=== PATIENT | male | born 1955 | race American Indian/Alaskan Native ===

== ENCOUNTER 2017-11-09 08:08 | Emergency (ER) | payer OTHER ==
[2017-11-09] MEDS ORDERED: TORADOL IM ONE (10:20)
[2017-11-09 10:33] VITALS: BP 176/91
--- NOTE | 2017-11-09 10:41 | XRay Report ---
LEFT SHOULDER: History: Left shoulder pain. Routine views demonstrate normal bony and soft tissue structures with normal joint alignment of the shoulder. Mild osteoarthritic changes are identified at the left acromioclavicular joint. No fracture, dislocation or ligamentous injury is identified. IMPRESSION: Mild acromioclavicular osteoarthritis.
--- NOTE | 2017-11-09 10:54 | Emergency Department Report ---
ED Upper Extremity Inj HPI - General Chief Complaint: Shoulder Injury Stated Complaint: LEFT ARM PAIN Time Seen by Provider: 11/09/17 10:20 Source: patient Mode of arrival: Ambulatory Limitations: No Limitations - History of Present Illness Initial Comments: 62-year-old right-hand dominant male history of hypertension, gout and diverticulitis presents to the hospital complains of left shoulder and left hand pain. Patient states initially started with left hand pain while week ago and now he is having anterior left shoulder pain as well. Pain is rated 8/10 and intensity, aching, intermittent, worse with palpation and movement in certain directions. Patient denies any recent injury, trauma, or heavy lifting. No fevers or swelling reported. Patient presents with elevated blood pressure and states he had history hypertension the past but improved after weight loss. Patient has elected to follow-up in quite some time for further evaluation of his blood pressure. Denies headache, chest pain, shortness of breath, or blurred vision. - Related Data Previous Rx's Medication Instructions Recorded Last Taken Type Ibuprofen [Motrin] 800 mg PO Q8HR PRN #30 tablet 11/09/17 Unknown Rx amLODIPine [Norvasc] 5 mg PO DAILY #30 tab 11/09/17 Unknown Rx traMADol [Ultram 50 MG tab] 50 mg PO Q6HR PRN #20 tablet 11/09/17 Unknown Rx Allergies Allergy/AdvReac Type Severity Reaction Status Date / Time No Known Allergies Allergy Unverified 11/09/17 08:12 ED Review of Systems ROS: Stated complaint: LEFT ARM PAIN Other details as noted in HPI Comment: All other systems reviewed and negative ED Past Medical Hx - Past Medical History Additional medical history: diverticulitis - Surgical History Past Surgical History?: No - Social History Smoking Status: Current Every Day Smoker Substance Use Type: Marijuana - Medications Home Medications: Home Medications Medication Instructions Recorded Confirmed Last Taken Type Ibuprofen [Motrin] 800 mg PO Q8HR PRN #30 tablet 11/09/17 Unknown Rx amLODIPine [Norvasc] 5 mg PO DAILY #30 tab 11/09/17 Unknown Rx traMADol [Ultram 50 MG tab] 50 mg PO Q6HR PRN #20 tablet 11/09/17 Unknown Rx ED Physical Exam - General Limitations: No Limitations - Other Other exam information: General: No limitations, patient is alert in no acute distress Head exam: Atraumatic, normocephalic Eyes exam: Normal appearance, pupils equal reactive to light, extraocular movements intact ENT: Moist mucous membrane, normal oropharynx Neck exam: Normal inspection, full range of motion, no meningismus nontender Respiratory exam: Clear to auscultation bilateral, no wheezes, rales, crackles Cardiovascular: Normal rate and rhythm, normal heart sounds Abdomen: Soft, nondistended, and nontender, with normal bowel sounds, no rebound, or guarding Extremity: Full range of motion normal inspection no deformity. Tenderness to the anterior left shoulder joint. Full range of motion with increased pain with external rotation and adduction. No warmth, swelling, or erythema. Back: Normal Inspection, full range of motion, no tenderness Neurologic: Alert, oriented x3, cranial nerves intact, no motor or sensory deficit Psychiatric: normal affect, normal mood Skin: Warm, dry, intact ED Course Vital Signs 11/09/17 11/09/17 08:12 10:32 Temperature 97.9 F Pulse Rate 58 L 58 L Respiratory 16 18 Rate Blood Pressure 182/90 Blood Pressure 176/91 [Right] O2 Sat by Pulse 100 99 Oximetry - Reevaluation(s) Reevaluation #1: 11/09/17 10:52 Patient received Toradol in the ED 11/09/17 11:03 Patient apparently refused Toradol ED Medical Decision Making - Radiology Data Radiology results: report reviewed LEFT SHOULDER: History: Left shoulder pain. Routine views demonstrate normal bony and soft tissue structures with normal joint alignment of the shoulder. Mild osteoarthritic changes are identified at the left acromioclavicular joint. No fracture, dislocation or ligamentous injury is identified. IMPRESSION: Mild acromioclavicular osteoarthritis. - Medical Decision Making X-ray suggestive of acromioclavicular arthritis. No clinical signs of infection. No side effects. Patient was treated symptomatically for pain and encouraged follow-up with PMD and orthopedic doctor. Blood pressure noted to be elevated. Patient be started on Norvasc 5 mg instructed to follow with PMD for further management. - Differential Diagnosis arthritis, bursitis, ligamentous injury Critical Care Time: No Critical care attestation.: If time is entered above; I have spent that time in minutes in the direct care of this critically ill patient, excluding procedure time. ED Disposition Clinical Impression: Arthritis of left shoulder region, HTN (hypertension) Disposition: DC- TO HOME OR SELFCARE Is pt being admited?: No Does the pt Need Aspirin: No Condition: Stable Instructions: Hypertension (ED), Osteoarthritis (ED), How to Take a Blood Pressure (ED) Additional Instructions: Take the medication as prescribed and follow with the primary care doctor orthopedic doctor. Continue to monitor your blood pressure. Return if symptoms worsens indicated by your discharge instructions. Prescriptions: amLODIPine [Norvasc] 5 mg PO DAILY #30 tab Ibuprofen [Motrin] 800 mg PO Q8HR PRN #30 tablet PRN Reason: Pain, Moderate (4-6) traMADol [Ultram 50 MG tab] 50 mg PO Q6HR PRN #20 tablet PRN Reason: Pain Referrals: [facility] [Provider Group] - 3-5 Days (Primary care clinic) CHRYSTAL GANDHI MD [Staff Physician] - 3-5 Days (Orthopedic doctor) NICA MUELLER MD [Staff Physician] - 3-5 Days (Primary care doctor) Time of Disposition: 11:03
== END 2017-11-09 11:25 | disposition home or self-care (01) ==
LOC: ED 08:08
DX: M19.012 Primary osteoarthritis, left shoulder (principal); I10 Essential (primary) hypertension; F17.200 Nicotine dependence, unspecified, uncomplicated; F12.10 Cannabis abuse, uncomplicated
CPT/HCPCS: 73030; 96372; 99283; J1885

== ENCOUNTER 2021-09-04 10:28 | Outpatient (CLI) | payer OTHER ==
--- NOTE | 2021-09-04 13:24 | XRay Report ---
LUMBOSACRAL SPINE 3 VIEWS INDICATION: BACK PAIN. COMPARISON: None. IMPRESSION: Normal alignment. Mild discogenic DJD and facet arthropathy are identified at all level s. L5-S1 appears most affected. There are mild symmetric degenerative changes at the SI joints. No a cute osseous or soft tissue abnormality. BILATERAL KNEES 2 VIEWS INDICATION: Bilateral knee pain. COMPARISON: None. IMPRESSION: No acute osseous or soft tissue abnormality. No significant DJD. Signer Name: Rubens Moreno Jr, MD Signed: 09/04/2021 1:20 PM Workstation Name: [id number]
== END 2021-09-04 10:29 | disposition home or self-care (01) ==
LOC: XRAY 10:28
PROVIDERS: ATTEND Internal Medicine
DX: M47.817 Spondylosis without myelopathy or radiculopathy, lumbosacral region (principal); M46.1 Sacroiliitis, not elsewhere classified; M25.562 Pain in left knee; M25.561 Pain in right knee
CPT/HCPCS: 72100